=== PATIENT | female | born 1955 | race Hispanic/Latino ===

== ENCOUNTER 2018-06-02 20:33 | Emergency (ER) | payer MEDICAID ==
[2018-06-02] MEDS ORDERED: PROVENTIL IH ONE (21:02)
[2018-06-02] MEDS ORDERED: ATROVENT IH ONE (21:02)
[2018-06-02 21:03] LABS: Basophils # (Auto) 0.1 K/mm3 (0.0-0.1); Basophils % (Auto) 0.8 % (0.0-1.8); Eosinophils # (Auto) 0.1 K/mm3 (0.0-0.4); Hematocrit 34.9 % (30.3-42.9); Hemoglobin 12.2 gm/dl (10.1-14.3); Lymphocytes # (Auto) 2.6 K/mm3 (1.2-5.4); Mean Corpuscular HGB Conc 35 % (30-34); Mean Corpuscular Volume 97 fl (79-97); Monocytes # (Auto) 1.2 K/mm3 (0.0-0.8); Monocytes % (Auto) 10.9 % (0.0-7.3); Platelet Count 284 K/mm3 (140-440); Red Blood Count 3.61 M/mm3 (3.65-5.03); Red Cell Distribution Width 14.5 % (13.2-15.2)
--- NOTE | 2018-06-02 21:05 | Emergency Department Report ---
ED Syncope HPI - General Chief Complaint: Dyspnea/Respdistress Stated Complaint: DONNA Time Seen by Provider: 06/02/18 20:45 Source: patient, EMS Exam Limitations: no limitations - History of Present Illness Initial Comments: 63-year-old female with history of bipolar disorder, COPD presents to ED from [facility] following an episode of lightheadedness. Patient says she was walking down the ness and she felt as if she was going to pass out, so she sat down on the floor. Patient stated she was also short of breath at that time. The patient denies chest pain, vomiting, diarrhea, fever, abdominal pain. She has COPD, not chronically on O2. Patient says she still smokes occasionally. Thinks symptoms tonight are due to her being stressed out because she stays at [place]. Timing/Prior Episodes: no prior history Precipitating Factors: Positive: lightheadedness Context: standing Loss of Consciousness: no loss of consciousness Current Symptoms: back to normal - Related Data Allergies/Adverse Reactions: Allergies No Known Allergies Allergy (Verified 06/02/18 20:48) ED Review of Systems ROS: Stated complaint: DONNA Other details as noted in HPI Comment: All other systems reviewed and negative Constitutional: denies: chills, fever Respiratory: shortness of breath. denies: cough Cardiovascular: denies: chest pain Gastrointestinal: denies: abdominal pain, nausea, vomiting, diarrhea Neurological: denies: headache ED Past Medical Hx - Past Medical History Previous Medical History?: Yes Hx Hypertension: Yes Hx Seizures: Yes Hx Psychiatric Treatment: Yes Hx COPD: Yes Additional medical history: hypothyroid, bipolar, depression, - Surgical History Past Surgical History?: Yes - Social History Smoking Status: Current Every Day Smoker Substance Use Type: None ED Physical Exam - General Limitations: No Limitations General appearance: alert, in no apparent distress - Head Head exam: Present: atraumatic, normocephalic - Eye Eye exam: Present: normal appearance - ENT ENT exam: Present: mucous membranes moist - Neck Neck exam: Present: normal inspection - Respiratory Respiratory exam: Present: wheezes (scant). Absent: respiratory distress - Cardiovascular Cardiovascular Exam: Present: regular rate, normal rhythm - GI/Abdominal GI/Abdominal exam: Present: soft. Absent: distended, tenderness - Extremities Exam Extremities exam: Absent: pedal edema - Neurological Exam Neurological exam: Present: alert, oriented X3, CN II-XII intact. Absent: motor sensory deficit - Psychiatric Psychiatric exam: Present: normal affect, normal mood - Skin Skin exam: Present: warm, dry, intact, normal color ED Course Vital Signs 06/02/18 06/02/18 06/02/18 20:46 21:20 21:30 Temperature 98.1 F Pulse Rate 96 H Pulse Rate [ Anterior Bilateral Throughout] Respiratory 16 Rate Respiratory Rate [Anterior Bilateral Throughout] Blood Pressure 167/92 141/82 O2 Sat by Pulse 95 97 96 Oximetry 06/02/18 06/02/18 06/02/18 21:45 22:00 22:10 Temperature Pulse Rate Pulse Rate [ 93 H 91 H Anterior Bilateral Throughout] Respiratory Rate Respiratory 16 16 Rate [Anterior Bilateral Throughout] Blood Pressure 141/82 149/78 O2 Sat by Pulse 100 99 Oximetry 06/02/18 06/02/18 06/02/18 22:50 23:00 23:15 Temperature Pulse Rate Pulse Rate [ Anterior Bilateral Throughout] Respiratory Rate Respiratory Rate [Anterior Bilateral Throughout] Blood Pressure 148/91 127/76 148/91 O2 Sat by Pulse 96 96 Oximetry 06/02/18 06/02/18 23:30 23:37 Temperature Pulse Rate 89 Pulse Rate [ Anterior Bilateral Throughout] Respiratory Rate Respiratory Rate [Anterior Bilateral Throughout] Blood Pressure 149/87 O2 Sat by Pulse 97 Oximetry ED Medical Decision Making - Lab Data Result diagrams: 06/02/18 20:51 06/02/18 20:51 - EKG Data -: EKG Interpreted by [facility] EKG shows normal: sinus rhythm, axis, intervals, QRS complexes, ST-T waves Rate: normal - EKG Data Interpretation: no acute changes - Radiology Data Radiology results: report reviewed, image reviewed - Medical Decision Making - near-syncope, SOB - COPD exacerbation - labs normal - EKG normal - CXR normal - IV fulids given, albuterol nbs given, pt feeling much better, ambulated to restroom w/o difficulty or assistance - will d/c at this - advised outpt follow-up - Differential Diagnosis COPD, dehydration, pneumonia, electrolyte abnormality Critical care attestation.: If time is entered above; I have spent that time in minutes in the direct care of this critically ill patient, excluding procedure time. ED Disposition Clinical Impression: COPD with acute exacerbation, Syncope, near Disposition: - TO HOME OR SELFCARE Is pt being admited?: No Condition: Stable Instructions: Chronic Obstructive Pulmonary Disease (ED), Near Syncope (ED) Referrals: BELTRAN COOPER MD [Primary Care Provider] - 3-5 Days Time of Disposition: 23:27
[2018-06-02 21:18] LABS: BUN/Creatinine Ratio 34; Blood Urea Nitrogen 27 mg/dL (7-17); Calcium 9.2 mg/dL (8.4-10.2); Hemolysis Index 11
[2018-06-02 21:31] LABS: Bilirubin,Urine NEG (Negative); Blood,Urine NEG (Negative); Color,Urine Straw (Yellow); Protein,Urine <15 mg/dL mg/dL (Negative); Urobilinogen,Urine < 2.0 mg/dL (<2.0)
[2018-06-02 21:41] LABS: INR 0.79 (0.87-1.13); Partial Thromboplastin Time 23.3 Sec. (24.2-36.6)
--- NOTE | 2018-06-02 22:09 | XRay Report ---
PROCEDURE: XR CHEST 1V AP TECHNIQUE: Single AP view of the chest HISTORY: sob COMPARISONS: None available FINDINGS: The cardiomediastinal silhouette is unremarkable. No infiltrate, effusion, or pneumothorax. No acute osseous abnormality. IMPRESSION: No pulmonary infiltrates are identified. This document is electronically signed by Letty Flood MD., June 02 2018 10:07:46 PM ET
[2018-06-02] MEDS ORDERED: NACL 0.9% 1000 ML 1,000 ML IV ONE (22:21)
[2018-06-02 23:37] VITALS: BP 149/87
== END 2018-06-03 00:13 | disposition home or self-care (01) ==
LOC: ED 20:33
DX: J44.1 Chronic obstructive pulmonary disease with (acute) exacerbation (principal); R55 Syncope and collapse; I10 Essential (primary) hypertension; E03.9 Hypothyroidism, unspecified; F32.9 Major depressive disorder, single episode, unspecified
CPT/HCPCS: 36415; 71045; 80048; 81001; 84484; 85025; 85610; 85730; 93005; 93010; 94640; 96360; 99284; J7030